=== PATIENT | female | born 1945 | race Caucasian/White ===

== ENCOUNTER 2016-09-21 15:35 | Emergency (ER) | payer MEDICARE, OTHER ==
[~2016-09-21 15:35] MED LIST: Sodium Chloride 0.9% 1,000 ML BAG ONE
[2016-09-21 16:52] LABS: ALT (SGPT) 23 U/L (8-55); AST (SGOT) 32 U/L (5-34); Albumin 3.4 g/dL (3.4-4.8); Alkaline Phosphatase 62 U/L (40-150); Anion Gap 17 mmol/L (10-20); BUN (Urea Nitrogen) 44 mg/dL (9.8-20.1); Bilirubin, Total 0.3 mg/dL (0.2-1.2); Calc. Creatinine Clearance 0 mL/min (70-130); Calcium 8.4 mg/dL (7.8-10.44); Carbon Dioxide 22 mmol/L (23-31); Chloride 107 mmol/L (98-107); Estimated GFR-MDRD 38; Globulin 2.3 g/dL (2.4-3.5); Glucose 82 mg/dL (83-110); Lipase 55 U/L (8-78); Potassium 4.8 mmol/L (3.5-5.1); Protein, Total 5.7 g/dL (6.0-8.3); Sodium 141 mmol/L (136-145)
[2016-09-21 17:01] LABS: #Lymphocytes 1.5 thou/uL (1.20-3.40); #Monocytes 0.3 thou/uL (0.11-0.59); #Neutrophils 2.1 thou/uL (1.40-6.50); %Basophils 0.9 % (0.0-1.0); %Eosinophils 0.7 % (0.0-10.0); %Lymphocytes 37.4 % (21.0-51.0); %Monocytes 6.7 % (0.0-10.0); %Neutrophils 54.3 % (42.0-75.0); Hemoglobin 11.2 g/dL (12.0-16.0); Mean Corpuscular Hemoglobin 32.3 pg (27.0-31.0); Mean Platelet Volume 8.7 fL (7.4-10.4); Platelet Count 250 thou/uL (130-400); RBC Distribution Width 12.2 % (11.5-14.5); Red Blood Cell (RBC) Count 3.47 mill/uL (4.20-5.40); White Blood Cell (WBC) Count 3.9 thou/uL (4.8-10.8)
[2016-09-21 18:22] LABS: Bilirubin Negative (Negative); Blood, Urine Negative (Negative); Glucose, Urine (Dipstick) Negative (Negative); Leukocyte Trace (Negative); Nitrite Negative (Negative); Protein, Urine (Dipstick) Negative (Neg-Trace); Urobilinogen 0.2 mg/dL (0.2-1.0)
[2016-09-21 18:23] LABS: Clarity Clear (Clear)
[2016-09-21 18:25] LABS: Bacteria/HPF Rare-Few HPF (None Seen); RBC/HPF 0-3 HPF (0-3)
--- NOTE | 2016-09-21 20:20 | RAD ---
CHEST ONE VIEW ABDOMEN TWO VIEWS 09/21/16 HISTORY: Abdomen pain. FINDINGS: Cardiac silhouette is magnified by projection. Pulmonary vasculature is unremarkable. Mediastinum is midline with aortic calcification. There is no confluent air space consolidation or evidence of keshia e subdiaphragmatic gas. Healed bilateral rib fractures are apparent. Gas and stool are apparent throughout the colon and rectum. No differential air fluid levels or free intraperitoneal gas are apparent. There are degenerative changes of the lumbar spine and hips. IMPRESSION: 1. Nonspecific bowel gas pattern. 2. Atherosclerosis. POS: [facility]
== END 2016-09-21 18:58 | disposition home or self-care (01) ==
LOC: MADERS 15:35
DX: E86.9 Volume depletion, unspecified (principal); I10 Essential (primary) hypertension; E03.9 Hypothyroidism, unspecified; Z79.891 Long term (current) use of opiate analgesic; Z79.899 Other long term (current) drug therapy
CPT/HCPCS: 36416; 74022; 80053; 81003; 81015; 83690; 85025; 96360; 96361; 36415-59; J7050

== ENCOUNTER 2016-10-12 09:53 | Outpatient (CLI) | payer MEDICARE ==
[2016-10-12] MEDS ORDERED: Iopamidol 370 76% 100 ML VIAL ONE (10:23)
--- NOTE | 2016-10-12 14:12 | CT ---
ABDOMEN AND PELVIS CT WITH CONTRAST: INDICATION: Epigastric pain for a month with nausea and vomiting. FINDINGS: No acute abnormality of the solid abdominal organs. There are bilateral renal hypodensities too sma ll to further characterize. Splenic granulomatous calcification is present. There is no evidence o f peripancreatic inflammation, bowel obstruction, free air, or significant ascites. There is mild p unctate hyperdensity of the periphery of the gallbladder, too small to definitively characterize. S cattered vascular disease is present. No consolidation at the lung bases. Osseous structures revea l degenerative change and there is levoscoliosis of the lumbar spine. Mild colonic diverticulosis i s present. There is mild wall prominence of the colon rather diffusely, which is underdistended. M oderately distended unopacified urinary bladder is grossly unremarkable. There are a few scattered punctate hepatic hypodensities too small to further characterize. IMPRESSION: 1. Diffuse mild wall prominence of the underdistended colon which could be physiologic. The possib ility of a colitis cannot be excluded. Correlate clinically. There is mild colonic diverticulosis. 2. Punctate hyperdensity along the wall of the gallbladder. Consider a dedicated gallbladder ultra sound as followup, to more definitively assess. 3. Additional details as described above. CODE T POS: [facility]
== END 2016-10-12 09:54 | disposition home or self-care (01) ==
LOC: MADCT 09:53
PROVIDERS: ATTEND Family Medicine
DX: R10.9 Unspecified abdominal pain (principal); K82.8 Other specified diseases of gallbladder; K63.89 Other specified diseases of intestine
CPT/HCPCS: 36415; 74177; 82565

== ENCOUNTER 2017-02-14 12:33 | Emergency (ER) | payer MEDICARE ==
[2017-02-14] MEDS ORDERED: methylPREDNISolone Sod Succ/PF 125 MG/2 ML VIAL ONE (12:53)
[2017-02-14 13:06] LABS: #Eosinphils 0.1 thou/uL (0.0-0.7); #Lymphocytes 1.5 thou/uL (1.20-3.40); #Monocytes 0.2 thou/uL (0.11-0.59); #Neutrophils 1.9 thou/uL (1.40-6.50); %Eosinophils 1.7 % (0.0-10.0); %Lymphocytes 39.3 % (21.0-51.0); %Monocytes 5.7 % (0.0-10.0); %Neutrophils 52.4 % (42.0-75.0); Mean Corpuscular HGB CONC 32.7 g/dL (32.0-36.0); Mean Corpuscular Hemoglobin 32.4 pg (27.0-31.0); Mean Corpuscular Volume 99.1 fl (81.0-99.0); Mean Platelet Volume 8.1 fL (7.4-10.4); Platelet Count 280 thou/uL (130-400); RBC Distribution Width 11.9 % (11.5-14.5); Red Blood Cell (RBC) Count 3.72 mill/uL (4.20-5.40); White Blood Cell (WBC) Count 3.7 thou/uL (4.8-10.8)
[2017-02-14 13:09] LABS: PTT 27.4 SEC (22.9-36.1)
[2017-02-14 13:10] LABS: D-Dimer Test Less than 0.27 *mcg/mL (0.27-0.43)
[2017-02-14 13:27] LABS: CKMB 2.7 ng/mL (0-6.6); Troponin I 0.016 ng/mL (< 0.028)
--- NOTE | 2017-02-14 13:30 | RAD ---
SINGLE VIEW OF THE CHEST: Comparison: 12-03-08 History: Dyspnea. FINDINGS: Single view of the chest shows a normal sized cardiomediastinal silhouette. There is no evidence of c onsolidation, mass, or pleural effusion. The bones are unremarkable. IMPRESSION: No evidence of acute cardiopulmonary disease. POS: [facility]
[2017-02-14] MEDS ORDERED: Lorazepam 2 MG/ML VIAL ONE (13:36)
[2017-02-14 14:26] LABS: pH (venous) 7.35 (7.35-7.45)
[2017-02-14 14:28] LABS: Base Excess -6.3 mEq/L (-2 - +2)
[2017-02-14 14:29] LABS: Hemoglobin (Hb) 10.9 g/dL (11.7-16.1)
[2017-02-14 14:55] LABS: ALT (SGPT) 26 U/L (8-55); AST (SGOT) 36 U/L (5-34); Albumin 4.3 g/dL (3.4-4.8); Alkaline Phosphatase 85 U/L (40-150); Anion Gap 19 mmol/L (10-20); BUN (Urea Nitrogen) 16 mg/dL (9.8-20.1); Bilirubin, Total 0.3 mg/dL (0.2-1.2); CK (CPK) 88 U/L (29-168); Calc. Creatinine Clearance 0 mL/min (70-130); Calcium 9.4 mg/dL (7.8-10.44); Carbon Dioxide 21 mmol/L (23-31); Chloride 105 mmol/L (98-107); Estimated GFR-MDRD 39; Globulin 2.9 g/dL (2.4-3.5); Glucose 114 mg/dL (83-110); Potassium 4.2 mmol/L (3.5-5.1); Protein, Total 7.2 g/dL (6.0-8.3); Sodium 141 mmol/L (136-145)
== END 2017-02-14 15:02 | disposition short-term general hospital (02) ==
LOC: MADERS 12:33
DX: J96.90 Respiratory failure, unspecified, unspecified whether with hypoxia or hypercapnia (principal); E87.2 Acidosis; E03.9 Hypothyroidism, unspecified; I10 Essential (primary) hypertension; F41.9 Anxiety disorder, unspecified; Z87.891 Personal history of nicotine dependence; Z79.899 Other long term (current) drug therapy
CPT/HCPCS: 71010; 80053; 82550; 82553; 82805; 83605; 83880; 84484; 85025; 85379; 85610; 85730; 87040; 93005; 94640; 94660; 94760; 96361; 96365; 96375; J1956; J2060; J2930; J7050; J7620

== ENCOUNTER 2017-03-23 13:35 | Emergency (ER) | payer MEDICARE ==
[2017-03-23 14:05] LABS: #Basophils 0.1 thou/uL (0.0-0.2); #Eosinphils 0.3 thou/uL (0.0-0.7); #Lymphocytes 1.7 thou/uL (1.20-3.40); #Monocytes 0.3 thou/uL (0.11-0.59); #Neutrophils 2.4 thou/uL (1.40-6.50); %Basophils 1.3 % (0.0-1.0); %Eosinophils 5.8 % (0.0-10.0); %Lymphocytes 36.1 % (21.0-51.0); %Monocytes 6.2 % (0.0-10.0); %Neutrophils 50.6 % (42.0-75.0); Hemoglobin 12.4 g/dL (12.0-16.0); Mean Corpuscular HGB CONC 31.8 g/dL (32.0-36.0); Mean Corpuscular Volume 100.6 fl (81.0-99.0); Mean Platelet Volume 8.7 fL (7.4-10.4); Platelet Count 268 thou/uL (130-400); RBC Distribution Width 12.3 % (11.5-14.5); Red Blood Cell (RBC) Count 3.87 mill/uL (4.20-5.40); White Blood Cell (WBC) Count 4.7 thou/uL (4.8-10.8)
[2017-03-23 14:08] LABS: INR-International Normal Ratio 0.9; Prothrombin Time 12.7 SEC (12.0-14.7)
[2017-03-23] MEDS ORDERED: Morphine 4 MG/ML VIAL ONE (14:09)
[2017-03-23] MEDS ORDERED: Magnesium Sulfate 2 GM/NS 0.9% 50 ML BAG ONE (14:09)
[2017-03-23] MEDS ORDERED: methylPREDNISolone Sod Succ/PF 125 MG/2 ML VIAL ONE (14:09)
[2017-03-23] MEDS ORDERED: Dexamethasone 10 MG/ML VIAL ONE (14:09)
[2017-03-23 14:25] LABS: ALT (SGPT) 24 U/L (8-55); AST (SGOT) 36 U/L (5-34); Albumin 4.2 g/dL (3.4-4.8); Alkaline Phosphatase 63 U/L (40-150); Anion Gap 21 mmol/L (10-20); BUN (Urea Nitrogen) 16 mg/dL (9.8-20.1); Bilirubin, Total 0.2 mg/dL (0.2-1.2); Calc. Creatinine Clearance 0 mL/min (70-130); Carbon Dioxide 20 mmol/L (23-31); Chloride 107 mmol/L (98-107); Estimated GFR-MDRD 45; Glucose 97 mg/dL (83-110); Potassium 4.8 mmol/L (3.5-5.1); Protein, Total 7.2 g/dL (6.0-8.3); Sodium 143 mmol/L (136-145)
[2017-03-23 14:27] LABS: CKMB 2.8 ng/mL (0-6.6); Troponin I Less than 0.010 ng/mL (< 0.028)
[2017-03-23 14:44] LABS: CK (CPK) 88 U/L (29-168); Magnesium 1.7 mg/dL (1.6-2.6)
[2017-03-23] MEDS ORDERED: Benzonatate 100 MG CAP ONE (15:27)
[2017-03-23] MEDS ORDERED: Azithromycin 250 MG TAB ONE (15:27)
--- NOTE | 2017-03-23 15:33 | RAD ---
SINGLE VIEW OF THE CHEST 03/23/17 COMPARISON: 02/14/17 HISTORY: Dyspnea. FINDINGS: Single view of the chest shows a normal sized cardiomediastinal silhouette. There is no evidence of c onsolidation, mass, or pleural effusion. There is opacity of overlying both lung bases which may repr esent bilateral breast implants. IMPRESSION: No evidence of acute cardiopulmonary disease. POS: [facility]
== END 2017-03-23 15:58 | disposition home or self-care (01) ==
LOC: MADERS 13:35
DX: J45.909 Unspecified asthma, uncomplicated (principal); I10 Essential (primary) hypertension; E03.9 Hypothyroidism, unspecified; F41.9 Anxiety disorder, unspecified; Z79.899 Other long term (current) drug therapy
CPT/HCPCS: 71045; 80053; 82550; 82553; 83735; 83880; 84484; 85025; 85610; 85730; 93005; 94640; 94760; 96365; 96372; 96375; J1040; J1100; J2270; J2930; J3475; J7050; J7620

== ENCOUNTER 2017-03-31 21:32 | Emergency (ER) | payer MEDICARE ==
[2017-03-31] MEDS ORDERED: Hydrocortisone Sod Succ/PF 250 mg/2 ml Vial ONE (21:43)
[2017-03-31] MEDS ORDERED: EPINEPHrine 1 MG/ML AMP ONE (21:43)
[2017-03-31] MEDS ORDERED: diphenhydrAMINE 50 MG/ML VIAL ONE (21:43)
[2017-03-31] MEDS ORDERED: Dexamethasone 10 MG/ML VIAL ONE (21:43)
[2017-03-31] MEDS ORDERED: Magnesium Sulfate 2 GM/NS 0.9% 50 ML BAG ONE (22:34)
[2017-03-31] MEDS ORDERED: Clindamycin/D5W 600 mg/50 ml Premix Bag ONE (23:52)
[2017-03-31] MEDS ORDERED: Benzonatate 100 MG CAP ONE (23:52)
== END 2017-04-01 02:00 | disposition home or self-care (01) ==
LOC: MADERS 21:32
DX: J20.9 Acute bronchitis, unspecified (principal); T36.0X5A Adverse effect of penicillins, initial encounter; E03.9 Hypothyroidism, unspecified; I10 Essential (primary) hypertension; F41.9 Anxiety disorder, unspecified; Z79.899 Other long term (current) drug therapy
CPT/HCPCS: 96365; 96367; 96372; 96375; J0171; J1040; J1100; J1200; J1720; J3475; J3490; J7050; J7620

== ENCOUNTER 2017-05-15 00:30 | Emergency (ER) | payer MEDICARE, OTHER ==
[2017-05-15] MEDS ORDERED: methylPREDNISolone Sod Succ/PF 125 MG/2 ML VIAL ONE (01:09)
[2017-05-15 01:37] LABS: Hemoglobin 11.4 g/dL (12.0-16.0); Mean Corpuscular HGB CONC 33.8 g/dL (32.0-36.0); Mean Corpuscular Hemoglobin 33.5 pg (27.0-31.0); Mean Corpuscular Volume 99.1 fl (81.0-99.0); Platelet Count 199 thou/uL (130-400); RBC Distribution Width 12.3 % (11.5-14.5); Red Blood Cell (RBC) Count 3.39 mill/uL (4.20-5.40); White Blood Cell (WBC) Count 4.5 thou/uL (4.8-10.8)
[2017-05-15 01:41] LABS: ALT (SGPT) 39 U/L (8-55); AST (SGOT) 38 U/L (5-34); Albumin 4.2 g/dL (3.4-4.8); Alkaline Phosphatase 66 U/L (40-150); Anion Gap 16 mmol/L (10-20); BUN (Urea Nitrogen) 17 mg/dL (9.8-20.1); Bilirubin, Total 0.3 mg/dL (0.2-1.2); CK (CPK) 132 U/L (29-168); Calc. Creatinine Clearance 0 mL/min (70-130); Calcium 8.7 mg/dL (7.8-10.44); Carbon Dioxide 24 mmol/L (23-31); Chloride 104 mmol/L (98-107); Estimated GFR-MDRD 45; Globulin 2.5 g/dL (2.4-3.5); Glucose 102 mg/dL (83-110); Potassium 3.8 mmol/L (3.5-5.1); Protein, Total 6.7 g/dL (6.0-8.3); Sodium 140 mmol/L (136-145)
[2017-05-15 01:52] LABS: Band 4 % (5-11); Lymphocytes 13 % (21-51); MDiff Complete? YES; Neutrophil 76 % (42-75)
[2017-05-15 01:53] LABS: Eosinophils 1 % (0-10); Metamyelocyte 2 % (0-0); Monocytes 4 % (0-10)
[2017-05-15 02:35] LABS: Troponin I 0.021 ng/mL (< 0.028)
[2017-05-15] MEDS ORDERED: Albuterol Sulfate 2.5 mg/3 ml Neb ONE (02:53)
[2017-05-15] MEDS ORDERED: Albuterol Sulfate 2.5 mg/0.5 ml Neb ONE (02:55)
[2017-05-15] MEDS ORDERED: guaiFENesin ER 600 MG TAB ONE (03:09)
--- NOTE | 2017-05-15 08:18 | RAD ---
TWO VIEWS CHEST: History: Dyspnea. FINDINGS: PA and lateral views obtained. The lungs are well aerated. No evidence of active intrathoracic diseas e is seen. No evidence of effusions, pneumonia or pneumothorax is seen. Calcification and ectasia of the aorta is seen. Bilateral healed rib fractures seen. IMPRESSION: No evidence of acute intrathoracic abnormality is seen. Healed left mid rib fractures. POS: [facility]
== END 2017-05-15 03:27 | disposition short-term general hospital (02) ==
LOC: MADERS 00:30
DX: J44.1 Chronic obstructive pulmonary disease with (acute) exacerbation (principal); R09.02 Hypoxemia; E03.9 Hypothyroidism, unspecified; I10 Essential (primary) hypertension; F41.9 Anxiety disorder, unspecified; Z79.899 Other long term (current) drug therapy
CPT/HCPCS: 36415; 71046; 80053; 82553; 83880; 84484; 85025; 87040; 93005; 96374; J2930; J7611; J7620

== ENCOUNTER 2017-11-14 14:19 | Outpatient (CLI) | payer MEDICARE, OTHER ==
--- NOTE | 2017-11-14 15:23 | RAD ---
3 VIEWS LUMBAR SPINE: Date: 11/14/17 HISTORY: Sciatica x3 weeks. COMPARISON: None. FINDINGS: There are five lumbar-type vertebral bodies. Vertebral body height is maintained. No fracture. Vacuum disc phenomenon at the lumbosacral junction. Mild degenerative changes of the posterior elements at L3-L4, L4-L5, and L5-S1. Atherosclerosis is noted. Normal appearing pedicles are not appreciated at L 5. IMPRESSION: 1. Vacuum disc phenomenon at L4-L5. MRI if clinically warranted, given patient's symptoms. 2. Normal appearing pedicles are not appreciated at L5. This may be due to the orientation of the L5 vertebral body. Nevertheless, the L5 vertebral body can be better assessed with MRI. GRETTA Yoo. POS: [facility]
== END 2017-11-14 14:20 | disposition home or self-care (01) ==
LOC: MADRAD 14:19
PROVIDERS: ATTEND Family Medicine
DX: M54.31 Sciatica, right side (principal)
CPT/HCPCS: 72100

== ENCOUNTER 2017-12-05 12:57 | Outpatient (CLI) | payer MEDICARE, OTHER ==
[2017-12-05 13:13] LABS: #Basophils 0.1 thou/uL (0.0-0.2); #Eosinphils 0.2 thou/uL (0.0-0.7); #Monocytes 0.6 thou/uL (0.11-0.59); #Neutrophils 4.1 thou/uL (1.40-6.50); %Basophils 1.2 % (0.0-1.0); %Eosinophils 2.3 % (0.0-10.0); %Lymphocytes 28.9 % (21.0-51.0); %Monocytes 8.1 % (0.0-10.0); %Neutrophils 59.5 % (42.0-75.0); Hemoglobin 11.5 g/dL (12.0-16.0); Mean Corpuscular Hemoglobin 32.1 pg (27.0-31.0); Mean Corpuscular Volume 97.3 fL (78.0-98.0); Mean Platelet Volume 7.2 fL (7.4-10.4); Platelet Count 304 thou/uL (130-400); RBC Distribution Width 12.1 % (11.5-14.5); White Blood Cell (WBC) Count 6.9 thou/uL (4.8-10.8)
[2017-12-05 13:33] LABS: ALT (SGPT) 21 U/L (8-55); AST (SGOT) 27 U/L (5-34); Albumin 4.2 g/dL (3.4-4.8); Alkaline Phosphatase 79 U/L (40-150); Anion Gap 17 mmol/L (10-20); BUN (Urea Nitrogen) 26 mg/dL (9.8-20.1); Bilirubin, Total 0.7 mg/dL (0.2-1.2); Calc. Creatinine Clearance 0 mL/min (70-130); Calcium 9.5 mg/dL (7.8-10.44); Carbon Dioxide 26 mmol/L (23-31); Chloride 97 mmol/L (98-107); Estimated GFR-MDRD 31; Globulin 2.6 g/dL (2.4-3.5); Glucose 89 mg/dL (83-110); Lipase 73 U/L (8-78); Potassium 4.5 mmol/L (3.5-5.1); Protein, Total 6.8 g/dL (6.0-8.3); Sodium 135 mmol/L (136-145)
== END 2017-12-05 12:58 | disposition home or self-care (01) ==
LOC: MADLABBHPM 12:57
PROVIDERS: ATTEND Family Medicine
DX: R10.9 Unspecified abdominal pain (principal)
CPT/HCPCS: 36415; 80053; 83690; 85025

== ENCOUNTER 2018-04-17 08:59 | Emergency (ER) | payer MEDICARE ==
[2018-04-17] MEDS ORDERED: Nitroglycerin 0.4 MG TAB 1 EACH ONE (09:08)
[2018-04-17] MEDS ORDERED: Dexamethasone 10 MG/ML VIAL ONE (09:16)
[2018-04-17 09:24] LABS: CO2 Tension (PvCO2) 45.6 mmHg (40.0-50.0); pH (Venous) 7.286 (7.320-7.430)
[2018-04-17 09:25] LABS: Base Excess-Venous -4.9 mmol/L (-2.0 to 3.0); Bicarbonate (HCO3v) 21.8 mmol/L (22.0-28.0); Calcium, Ionized 1.11 mmol/L (See Comments:); Chloride 101 mmol/L (98-107); Hemoglobin - Calc 13.1 g/dL (12.0-16.0); O2 Tension (PvO2) 35.6 mmHg (35.0-45.0); Sodium 133 mmol/L (138-145); T. Carbon Dioxide 23.2 mmol/L (22.0-28.0)
[2018-04-17] MEDS ORDERED: Sodium Chloride 0.9% 1,000 ML ONE (09:30)
[2018-04-17] MEDS ORDERED: Magnesium Sulfate 2 GM/NS 0.9% 50 ML BAG ONE (09:34)
[2018-04-17 09:35] LABS: %Eosinophils 15.2 % (0.0-10.0); %Lymphocytes 20.7 % (21.0-51.0); %Monocytes 6.4 % (0.0-10.0); %Neutrophils 56.6 % (42.0-75.0); Mean Corpuscular HGB CONC 33.2 g/dL (32.0-36.0); Mean Corpuscular Volume 96.1 fL (78.0-98.0); Mean Platelet Volume 7.3 fL (7.4-10.4); Platelet Count 248 thou/uL (130-400); White Blood Cell (WBC) Count 6.7 thou/uL (4.8-10.8)
[2018-04-17 09:36] LABS: #Basophils 0.1 thou/uL (0.0-0.2); #Lymphocytes 1.4 thou/uL (1.20-3.40); #Monocytes 0.4 thou/uL (0.11-0.59); #Neutrophils 3.8 thou/uL (1.40-6.50); %Basophils 1.2 % (0.0-1.0); PTT 26.6 SEC (22.9-36.1); Prothrombin Time 12.8 SEC (12.0-14.7)
[2018-04-17 09:48] LABS: ALT (SGPT) 24 U/L (8-55); AST (SGOT) 30 U/L (5-34); Albumin 4.4 g/dL (3.4-4.8); Alkaline Phosphatase 74 U/L (40-150); Anion Gap 20 mmol/L (10-20); BUN (Urea Nitrogen) 18 mg/dL (9.8-20.1); Bilirubin, Total 0.4 mg/dL (0.2-1.2); Calc. Creatinine Clearance 0 mL/min (70-130); Calcium 9.6 mg/dL (7.8-10.44); Carbon Dioxide 21 mmol/L (23-31); Chloride 99 mmol/L (98-107); Estimated GFR-MDRD 39; Globulin 2.7 g/dL (2.4-3.5); Glucose 146 mg/dL (83-110); Potassium 4.1 mmol/L (3.5-5.1); Protein, Total 7.1 g/dL (6.0-8.3); Sodium 136 mmol/L (136-145)
--- NOTE | 2018-04-17 09:55 | RAD ---
CHEST ONE VIEW: Date: 04-17-18 History: Difficulty breathing. Comparison: 06-05-17 FINDINGS: Old bilateral rib fractures. Lungs are clear. No pneumothorax or effusion. There are partially calcif ied breast implants. No acute osseous abnormality. Old right distal reticular fracture. IMPRESSION: No acute intrathoracic abnormality. POS: [facility]
== END 2018-04-17 11:05 | disposition short-term general hospital (02) ==
LOC: MADERS 08:59
DX: R06.02 Shortness of breath (principal); E03.9 Hypothyroidism, unspecified; I10 Essential (primary) hypertension; F41.9 Anxiety disorder, unspecified
CPT/HCPCS: 36415; 71045; 80053; 82330; 82435; 82803; 83735; 83880; 84132; 84295; 84484; 85014; 85025; 85610; 85730; 93005; 94644; 94660; 94760; 96365; 96375; J1100; J3475; J7050; J7620

== ENCOUNTER 2018-05-06 09:05 | Outpatient (CLI) | payer MEDICARE ==
--- NOTE | 2018-05-06 11:19 | ULT ---
SOFT TISSUE ULTRASOUND: HISTORY: Hematoma. COMPARISON: None. FINDINGS: There is a complex collection of heterogeneous fluid and debris within the superficial soft tissues o f the right lower quadrant of the abdomen. These are two separate collections, which do have a conne ction. These collections measure up to 9 cm in length x a transverse width of approximately 7 cm. IMPRESSION: Findings that can be seen with a hematoma, given the patient's history. A follow-up CT examination w ould be beneficial. This could be done in two to three weeks. POS: [facility]
== END 2018-05-06 09:06 | disposition home or self-care (01) ==
LOC: MADULT 09:05
PROVIDERS: ATTEND Family Medicine
DX: S30.1XXA Contusion of abdominal wall, initial encounter (principal)
CPT/HCPCS: 76999

== ENCOUNTER 2018-05-22 09:24 | Emergency (ER) | payer MEDICARE ==
[2018-05-22] MEDS ORDERED: predniSONE 20 MG TAB ONE (10:04)
[2018-05-22] MEDS ORDERED: Azithromycin 250 MG TAB ONE (10:04)
--- NOTE | 2018-05-22 10:22 | RAD ---
SINGLE VIEW CHEST: Date: 05/22/18 COMPARISON: 04/18/18. HISTORY: Dyspnea. FINDINGS: Single view of the chest shows a normal sized cardiomediastinal silhouette. There is no evidence of c onsolidation, mass, or pleural effusion. The bones are unremarkable. IMPRESSION: No evidence of acute cardiopulmonary disease. POS: [facility]
[2018-05-22 10:23] LABS: #Basophils 0.1 thou/uL (0.0-0.2); #Eosinphils 0.5 thou/uL (0.0-0.7); #Lymphocytes 0.9 thou/uL (1.20-3.40); #Monocytes 0.5 thou/uL (0.11-0.59); #Neutrophils 3.8 thou/uL (1.40-6.50); %Basophils 0.9 % (0.0-1.0); %Eosinophils 8.2 % (0.0-10.0); %Lymphocytes 15.7 % (21.0-51.0); %Monocytes 9.1 % (0.0-10.0); %Neutrophils 66.1 % (42.0-75.0); Hemoglobin 10.1 g/dL (12.0-16.0); Mean Corpuscular HGB CONC 31.4 g/dL (32.0-36.0); Mean Corpuscular Volume 101.8 fL (78.0-98.0); Mean Platelet Volume 6.7 fL (7.4-10.4); Platelet Count 248 thou/uL (130-400); RBC Distribution Width 13.9 % (11.5-14.5); Red Blood Cell (RBC) Count 3.15 mill/uL (4.20-5.40); White Blood Cell (WBC) Count 5.7 thou/uL (4.8-10.8)
[2018-05-22 10:39] LABS: ALT (SGPT) 16 U/L (8-55); AST (SGOT) 17 U/L (5-34); Albumin 4.1 g/dL (3.4-4.8); Alkaline Phosphatase 59 U/L (40-150); Anion Gap 12 mmol/L (10-20); BUN (Urea Nitrogen) 23 mg/dL (9.8-20.1); Bilirubin, Total 0.4 mg/dL (0.2-1.2); Calc. Creatinine Clearance 0 mL/min (70-130); Calcium 9.5 mg/dL (7.8-10.44); Carbon Dioxide 27 mmol/L (23-31); Chloride 105 mmol/L (98-107); Estimated GFR-MDRD 40; Globulin 2.2 g/dL (2.4-3.5); Glucose 101 mg/dL (83-110); Potassium 4.2 mmol/L (3.5-5.1); Protein, Total 6.3 g/dL (6.0-8.3); Sodium 140 mmol/L (136-145)
[2018-05-22] MEDS ORDERED: cloNIDine 0.1 MG TAB ONE (12:34)
[2018-05-22] MEDS ORDERED: Albuterol Sulfate 2.5 mg/3 ml Neb ONE (12:34)
[2018-05-22] MEDS ORDERED: Acetaminophen 500 MG TAB ONE (13:05)
== END 2018-05-22 15:05 | disposition short-term general hospital (02) ==
LOC: MADERS 09:24
DX: J44.1 Chronic obstructive pulmonary disease with (acute) exacerbation (principal); E03.9 Hypothyroidism, unspecified; I10 Essential (primary) hypertension; F41.9 Anxiety disorder, unspecified; Z79.899 Other long term (current) drug therapy; Z79.891 Long term (current) use of opiate analgesic; Z79.51 Long term (current) use of inhaled steroids
CPT/HCPCS: 36415; 71045; 80053; 83880; 84484; 85025; 87804; 93005; J7611; J7620

== ENCOUNTER 2020-03-22 11:06 | Outpatient (CLI) | payer MEDICARE ==
[2020-03-22 11:41] LABS: #Eosinphils 0.1 thou/uL (0.0-0.7); #Lymphocytes 1.4 thou/uL (1.20-3.40); #Monocytes 0.3 thou/uL (0.11-0.59); #Neutrophils 2.1 thou/uL (1.40-6.50); %Eosinophils 2.7 % (0.0-10.0); %Lymphocytes 35.4 % (21.0-51.0); %Monocytes 6.6 % (0.0-10.0); %Neutrophils 54.3 % (42.0-75.0); Hemoglobin 14.3 g/dL (12.0-16.0); Mean Corpuscular Hemoglobin 31.5 pg (27.0-31.0); Mean Corpuscular Volume 98.7 fL (78.0-98.0); Mean Platelet Volume 7.9 fL (7.4-10.4); Platelet Count 237 thou/uL (130-400); RBC Distribution Width 12.2 % (11.5-14.5); Red Blood Cell (RBC) Count 4.52 mill/uL (4.20-5.40); White Blood Cell (WBC) Count 3.9 thou/uL (4.8-10.8)
--- NOTE | 2020-03-22 11:46 | RAD ---
LUMBAR SPINE 3 VIEWS: HISTORY: Low back pain. COMPARISON: 11/14/2017. FINDINGS: Multilevel degenerative changes are present. No acute fracture, subluxation, or bone destruction is identified. There are vascular calcifications. IMPRESSION: Lumbar spondylosis. POS: [facility]
[2020-03-22 11:52] LABS: ALT (SGPT) 10 U/L (8-55); AST (SGOT) 20 U/L (5-34); Albumin 4.3 g/dL (3.4-4.8); Alkaline Phosphatase 90 U/L (40-110); Anion Gap 18 mmol/L (10-20); BUN (Urea Nitrogen) 16 mg/dL (9.8-20.1); Bilirubin, Total 0.4 mg/dL (0.2-1.2); Calc. Creatinine Clearance 0 mL/min (70-130); Calcium 9.1 mg/dL (7.8-10.44); Carbon Dioxide 23 mmol/L (23-31); Chloride 103 mmol/L (98-107); Cholesterol 233 mg/dl (< 200 Desired); Globulin 2.6 g/dL (2.4-3.5); Glucose 110 mg/dL (83-110); HDL Cholesterol 118 mg/dL (>60 Neg Risk); LDL Cholesterol, Calculated 89 mg/dL; Potassium 3.5 mmol/L (3.5-5.1); Protein, Total 6.9 g/dL (6.0-8.3); Sodium 140 mmol/L (136-145); Triglycerides 130 mg/dL (Less than 150)
--- NOTE | 2020-03-22 12:19 | RAD ---
2 views of the right hip: 03/22/2020 COMPARISON: None HISTORY: Osteoarthritis with pain FINDINGS: There is severe degenerative change involving the right hip. There is complete loss of join t space superiorly and medially with fragmentation, subchondral sclerosis, subchondral lucency, and collapse of the femoral head. There is associated lateral acetabular osteophyte formation. No acute f racture or dislocation. IMPRESSION: Severe degenerative changes of the right hip. Collapse of the right femoral head may sign marianna superimposed avascular necrosis. Recommend orthopedic consultation.
== END 2020-03-22 11:07 | disposition home or self-care (01) ==
LOC: MADLAB 11:06
PROVIDERS: ATTEND Family Medicine
DX: M25.551 Pain in right hip (principal); M47.816 Spondylosis without myelopathy or radiculopathy, lumbar region; E03.9 Hypothyroidism, unspecified; I10 Essential (primary) hypertension; E78.00 Pure hypercholesterolemia, unspecified
CPT/HCPCS: 36415; 72100; 80053; 80061; 84443; 85025

== ENCOUNTER 2021-03-15 10:39 | Emergency (ER) | payer MEDICARE ==
[2021-03-15 11:55] LABS: #Lymphocytes 0.5 thou/uL (1.20-3.40); #Monocytes 0.3 thou/uL (0.11-0.59); #Neutrophils 1.6 thou/uL (1.40-6.50); %Basophils 1.5 % (0.0-1.0); %Eosinophils 0.4 % (0.0-10.0); %Lymphocytes 20.1 % (21.0-51.0); %Monocytes 12.5 % (0.0-10.0); %Neutrophils 65.5 % (42.0-75.0); Hemoglobin 13.5 g/dL (12.0-16.0); Mean Corpuscular HGB CONC 32.4 g/dL (32.0-36.0); Mean Corpuscular Volume 105.2 fL (78.0-98.0); Mean Platelet Volume 7.2 fL (7.4-10.4); Platelet Count 225 thou/uL (130-400); RBC Distribution Width 16.6 % (11.5-14.5); Red Blood Cell (RBC) Count 3.97 mill/uL (4.20-5.40); White Blood Cell (WBC) Count 2.5 thou/uL (4.8-10.8)
[2021-03-15 11:57] LABS: ALT (SGPT) 27 U/L (8-55); AST (SGOT) 61 U/L (5-34); Albumin 3.1 g/dL (3.4-4.8); Alkaline Phosphatase 154 U/L (40-110); Anion Gap 19 mmol/L (10-20); BUN (Urea Nitrogen) 15 mg/dL (9.8-20.1); Bilirubin, Total 0.6 mg/dL (0.2-1.2); Calc. Creatinine Clearance 0 mL/min (70-130); Calcium 8.3 mg/dL (7.8-10.44); Carbon Dioxide 23 mmol/L (23-31); Chloride 97 mmol/L (98-107); Globulin 2.5 g/dL (2.4-3.5); Glucose 119 mg/dL (83-110); Magnesium 1.3 mg/dL (1.6-2.6); Protein, Total 5.6 g/dL (5.8-8.1); Sodium 135 mmol/L (136-145)
[2021-03-15 12:14] LABS: Macrocytosis SLIGHT = 6-15 cells (100X) (0-5/hpf)
[2021-03-15] MEDS ORDERED: Sodium Chloride 0.9% 100 ML ONE (12:17)
[2021-03-15] MEDS ORDERED: CEFAZOLIN 1 GM VIAL ONE (12:17)
== END 2021-03-15 12:52 | disposition short-term general hospital (02) ==
LOC: MADERS 10:39
DX: L03.115 Cellulitis of right lower limb (principal); M79.89 Other specified soft tissue disorders; I10 Essential (primary) hypertension; E03.9 Hypothyroidism, unspecified; J44.9 Chronic obstructive pulmonary disease, unspecified
CPT/HCPCS: 36415; 71045; 80053; 83605; 83735; 83880; 85025; 85379; 96365; J0690; J3490